=== PATIENT | female | born 1990 | race Caucasian/White ===

== ENCOUNTER 2017-05-26 21:45 | Observation (INO) | payer OTHER ==
[2017-05-26] MEDS ORDERED: Sodium Chloride 0.9% 10 ML Syringe FLUSH PRN (21:58)
[2017-05-26] MEDS ORDERED: Sodium Chloride 0.9% 1,000 ML IV ONE (21:59)
[2017-05-26] MEDS ORDERED: Ondansetron 4 MG/2 ML SDV IVPUSH ONE (21:59)
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
[2017-05-26] MEDS ORDERED: Dexamethasone 4 MG/ML SDV IVPUSH ONE (22:06)
[2017-05-26 22:47] LABS: CHLORIDE,CL 106 mmol/L (98-107); SODIUM,NA 141 mmol/L (136-145)
[2017-05-26] MEDS ORDERED: Morphine 2 MG/ML Syringe IVPUSH PRN (23:33)
[2017-05-26] MEDS ORDERED: Ketorolac 30 MG/ML SDV IVPUSH PRN (23:33)
[2017-05-26] MEDS ORDERED: Ondansetron 4 MG/2 ML SDV IV PRN (23:33)
[2017-05-26] MEDS ORDERED: Sodium Chloride 0.9% 1,000 ML IV SCH (23:45)
[2017-05-27] MEDS: Nicotine 21 MG/24 Hr Patch TRDERM SCH ×2 (00:19→08:17)
[2017-05-27] MEDS: Acetaminophen 325 MG Tab PO PRN ×2 (00:33→08:24)
[2017-05-27 10:10] VITALS: BP 129/75
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
== END 2017-05-27 10:40 | disposition home or self-care (01) ==
LOC: VM.ED 21:45 → VM.MS 23:20
PROVIDERS: ADMIT Nurse Practitioner Family; ATTEND Nurse Practitioner Family
DX: S09.90XA Unspecified injury of head, initial encounter (principal); S13.4XXA Sprain of ligaments of cervical spine, initial encounter; I10 Essential (primary) hypertension; E05.90 Thyrotoxicosis, unspecified without thyrotoxic crisis or storm; F53 Mental and behavioral disorders associated with the puerperium, not elsewhere classified; V89.2XXA Person injured in unspecified motor-vehicle accident, traffic, initial encounter; Z79.899 Other long term (current) drug therapy; Z91.018 Allergy to other foods; F17.210 Nicotine dependence, cigarettes, uncomplicated
CPT/HCPCS: 36415; 70450; 72125; 72128; 72131; 80048; 80305; 81001; 81025; 85025; 90471; 96374; 96375; 99285; A9270; J1100; J2405; J3230; J7030; J7050; 96365; G0378

== ENCOUNTER 2018-01-02 17:20 | Emergency (ER) | payer MEDICAID ==
[2018-01-02] MEDS ORDERED: Sodium Chloride 0.9% 10 ML Syringe FLUSH PRN (17:28)
[2018-01-02 18:19] LABS: CHLORIDE,CL 104 mmol/L (98-107); SODIUM,NA 139 mmol/L (136-145)
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
== END 2018-01-02 18:55 ==
LOC: VM.ED 17:20
DX: M62.81 Muscle weakness (generalized) (principal); R51 Headache; I10 Essential (primary) hypertension; E05.90 Thyrotoxicosis, unspecified without thyrotoxic crisis or storm; F17.210 Nicotine dependence, cigarettes, uncomplicated; Z91.018 Allergy to other foods; Z88.8 Allergy status to other drugs, medicaments and biological substances; Z79.899 Other long term (current) drug therapy
CPT/HCPCS: 70450; 71045; 80053; 81001; 81025; 82962; 83735; 84100; 84443; 84484; 85025; 85610; 86140; 93005; 99285; G0480

== ENCOUNTER 2018-11-29 18:34 | Emergency (ER) | payer OTHER, MEDICAID ==
[2018-11-29] MEDS ORDERED: Sodium Chloride 0.9% 10 ML Syringe FLUSH PRN (18:48)
[2018-11-29] MEDS: fentaNYL 100 MCG/2 ML SDV IVPUSH PRN (19:10)
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
[2018-11-29 19:48] LABS: CHLORIDE,CL 104 mmol/L (98-107); SODIUM,NA 140 mmol/L (136-145)
[2018-11-29 19:49] LABS: ANION GAP 15.6 mmol/L (10-20)
== END 2018-11-29 19:25 | disposition short-term general hospital (02) ==
LOC: VM.ED 18:34
DX: S06.0X9A Concussion with loss of consciousness of unspecified duration, initial encounter (principal); M54.2 Cervicalgia; M54.9 Dorsalgia, unspecified; I10 Essential (primary) hypertension; F32.9 Major depressive disorder, single episode, unspecified; Z88.8 Allergy status to other drugs, medicaments and biological substances; Z79.899 Other long term (current) drug therapy; V89.2XXA Person injured in unspecified motor-vehicle accident, traffic, initial encounter
CPT/HCPCS: 51702; 71045; 80053; 81001; 82550; 83605; 83735; 84100; 84443; 85025; 85610; 86140; 96374; 99285-25; J3010

== ENCOUNTER 2019-01-18 20:48 | Emergency (ER) | payer OTHER, MEDICAID ==
[2019-01-18] MEDS ORDERED: Cyclobenzaprine 10 MG Tab PO ONE (21:10)
[2019-01-18] MEDS ORDERED: Ondansetron 4 MG/2 ML SDV IM ONE (21:10)
[2019-01-18] MEDS ORDERED: Morphine 4 MG/ML Syringe IM ONE (21:10)
[2019-01-18] MEDS ORDERED: Morphine 2 MG/ML Syringe IM ONE (22:16)
[2019-01-18] MEDS ORDERED: Diazepam 2 MG Tab PO ONE (22:16)
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
[2019-01-18] MEDS ORDERED: Ketorolac 10 MG Tab PO ONE (22:45)
[2019-01-19 03:26] VITALS: BP 180/100
--- NOTE | 2019-01-20 09:06 | CT ---
[id number] CT/CT Thoracic Spine WO IV EXAM: NONCONTRAST THORACIC SPINE CT INDICATION: Back injury. COMPARISON: May 26, 2017. DISCUSSION: The vertebral bodies are normal in height and alignment. No fracture or suspicious osseous lesion is identified. Mild degenerative disc disease normal in with T6-T7, T7-T8, T8-T9 and T9-T10. IMPRESSION: 1. Mild lower thoracic spondylosis. 2. Negative for fracture or other acute findings. Fletcher Bolanos MD 01/20/19 0905 Thank you for allowing us to participate in the care of your patient.
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
== END 2019-01-18 23:20 | disposition home or self-care (01) ==
LOC: VM.ED 20:48
DX: M54.5 Low back pain (principal); M79.604 Pain in right leg; I10 Essential (primary) hypertension; F32.9 Major depressive disorder, single episode, unspecified; E05.90 Thyrotoxicosis, unspecified without thyrotoxic crisis or storm; Z79.899 Other long term (current) drug therapy; Z91.018 Allergy to other foods; Z88.8 Allergy status to other drugs, medicaments and biological substances
CPT/HCPCS: 72128; 72131; 81025; 96372; 99284; A9270; J2270; J2405

== ENCOUNTER 2019-07-24 19:48 | Emergency (ER) | payer SELFPAY ==
[2019-07-24 20:00] VITALS: PULSE 87
[2019-07-24] MEDS: GI Cocktail Oral Solution 30 ML PO ONE (20:31)
[2019-07-24 20:43] LABS: CHLORIDE,CL 106 mmol/L (54-184); SODIUM,NA 142 mmol/L (69-191)
[2019-07-24 20:44] LABS: ANION GAP 14.5 mmol/L (10-20)
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
[2019-07-24] MEDS: Omeprazole 20 MG Cap.CR PO ONE (21:59)
[2019-07-24] MEDS: Ketorolac 30 MG/ML SDV IM ONE (22:00)
[2019-07-24 22:21] VITALS: BP 164/92
== END 2019-07-24 22:20 | disposition home or self-care (01) ==
LOC: VM.ED 19:48
DX: R10.31 Right lower quadrant pain (principal); I10 Essential (primary) hypertension; F17.210 Nicotine dependence, cigarettes, uncomplicated; Z91.018 Allergy to other foods; Z88.8 Allergy status to other drugs, medicaments and biological substances
CPT/HCPCS: 36415; 80053; 81025; 84443; 85025; 86140; 96372; 99284; 99284-GF; A9270-GY; J1885

== ENCOUNTER 2020-06-12 21:37 | Emergency (ER) | payer MEDICAID, OTHER ==
[2020-06-12] MEDS ORDERED: Sodium Chloride 0.9% 1,000 ML IV ONE (21:56)
[2020-06-12] MEDS ORDERED: Metoclopramide 10 MG/2 ML SDV IVPUSH ONE (21:56)
[2020-06-12] MEDS ORDERED: Sodium Chloride 0.9% 10 ML Syringe FLUSH PRN (21:56)
[2020-06-12] MEDS ORDERED: Ketorolac 30 MG/ML SDV IVPUSH ONE (21:56)
[2020-06-12] MEDS ORDERED: hydrOXYzine HCl 25 MG Tab PO ONE (21:59)
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
[2020-06-12 23:11] VITALS: PULSE 89
[2020-06-13 03:56] VITALS: BP 153/101
== END 2020-06-12 22:27 | disposition left against medical advice (07) ==
LOC: VM.ED 21:37
DX: O99.89 Other specified diseases and conditions complicating pregnancy, childbirth and the puerperium (principal); R51 Headache; O10.912 Unspecified pre-existing hypertension complicating pregnancy, second trimester; O99.212 Obesity complicating pregnancy, second trimester; Z88.8 Allergy status to other drugs, medicaments and biological substances; Z91.018 Allergy to other foods; Z3A.14 14 weeks gestation of pregnancy
CPT/HCPCS: 96374; 96375; 99283; 99283-25; A9270-GY; J1885; J2765; J7030